=== PATIENT | female | born 1980 | race Caucasian/White ===

== ENCOUNTER 2023-07-28 17:09 | Outpatient (CLI) | payer BC ==
--- NOTE | 2023-07-29 14:06 | XRAY Report ---
PROCEDURE: Ankle 3 View RT INDICATIONS: RIGHT ANKLE INJURY TECHNIQUE: 3 views of the ankle were acquired. COMPARISON: None. FINDINGS: Bones: No fractures or dislocations. Ankle mortise is normally aligned. No suspicious bony lesions . Mild dorsal calcaneal enthesopathy. Soft tissues: Moderate sized tibiotalar joint effusion. Achilles tendon appears normal. Moderate l ateral periarticular soft tissue swelling. IMPRESSION: 1. Tibiotalar joint effusion and lateral soft tissue swelling consistent with sprain. 2. No visible underlying fracture. Reviewed by: Geovanna Schumacher MD on 07/29/2023 2:05 PM PDT Approved by: Geovanna Schumacher MD on 07/29/2023 2:05 PM PDT Station ID: [id number]
== END 2023-07-28 23:59 | disposition home or self-care (01) ==
LOC: DI.S 17:09
PROVIDERS: ATTEND Emergency Medicine
DX: M25.471 Effusion, right ankle (principal); S99.911A Unspecified injury of right ankle, initial encounter